=== PATIENT | male | born 1955 | race Caucasian/White ===

== ENCOUNTER → 2018-04-15 15:45 | Outpatient (CLI) | payer OTHER, SELFPAY | PROVIDERS: Family Provider Internal Medicine; PCP Internal Medicine; Visit Provider Internal Medicine | DX: R19.7 Diarrhea, unspecified (principal) | CPT/HCPCS: 87493 ==

== ENCOUNTER → 2018-05-10 10:55 | Outpatient (CLI) | payer OTHER, SELFPAY | PROVIDERS: Family Provider Internal Medicine; PCP Internal Medicine; Visit Provider Internal Medicine | DX: M70.71 Other bursitis of hip, right hip (principal); M70.72 Other bursitis of hip, left hip | CPT/HCPCS: 73521 ==

== ENCOUNTER → 2019-11-02 10:37 | Outpatient (CLI) | payer MEDICARE, OTHER, SELFPAY ==
[2019-11-02 09:33] VITALS: BMI 29.4
--- NOTE | 2019-11-02 10:51 | CT_ITS ---
STUDY: CT ABDOMEN AND PELVIS WITHOUT CONTRAST REASON FOR EXAM: Male, 63 years old. BILATERAL KIDNEY INJURY, FELL DOWN STAIRS THIS AM, RT FLANK PAIN, MICROSCOPIC HEMATURIA, HX CHOLECYSTECTOMY RADIATION DOSAGE (If Supplied By Facility): CTDIvol = ( 10.37 ) mGy, DLP = ( 481.77 ) mGycm TECHNIQUE: Transaxial images were obtained from the dome of the diaphragm to the symphysis pubis without oral contrast, and without intravenous contrast. Sagittal and coronal images were reconstructed. Individualized dose optimization techniques were used for this CT. COMPARISON: Comparison is made with prior examination dated June 30, 2010. FINDINGS: There is a mild degree of groundglass appearance in both lower lobes posteriorly. This may represent atelectasis and/or contusion with the patient''s history of trauma. The visualized portions of the heart are within normal limits. Normal liver. The patient is status post cholecystectomy. Normal spleen. Normal pancreas. Normal bilateral adrenal glands. Normal right kidney. There is a 1.2 cm cyst in the anterior aspect of the left kidney. Normal visualized stomach. Normal small intestine. There are scattered colonic diverticula consistent with diverticulosis. The appendix is visualized and appears normal. Normal abdominal aorta. Normal inferior vena cava. Normal retroperitoneum. Normal urinary bladder. There is enlargement of the prostate gland. It measures 5.7 cm x 5.7 cm. Metallic radiation seeds are seen within it. The enlargement of the prostate gland causes indentation at the bladder base. Normal abdominal wall. There are diffuse degenerative changes of the visualized lumbar spine. Stable mild degree of loss of height of the superior endplate of the L5 vertebrae. CT/Abdomen/Pelvis without Cont IMPRESSION: Mild degree of groundglass appearance at the lung bases. Prostatic enlargement. Radiation seeds are seen within the prostate. Electronically Signed: Arley Shabazz, at 11:14 EST , Service support ,
--- NOTE | 2019-11-02 10:55 | RAD_ITS ---
STUDY: X-RAY CHEST REASON FOR EXAM: Male, 63 years old. Patient complains of cough x 4-5 weeks, denies any other lung disease Hx other than a previous PE TECHNIQUE: PA and lateral views of the chest. COMPARISON: Comparison is made with prior examination dated December 13, 2015. FINDINGS: Stable mild increased linear markings at the lung bases suggestive of a mild basilar scarring. There is no demonstrated pleural abnormality. Normal size heart. Normal mediastinum and katlyn. Normal visualized pulmonary arteries. Normal visualized aortic arch and descending thoracic aorta. There are diffuse degenerative changes of the visualized thoracic spine. Normal visualized ribs, clavicles, and shoulders. There is no demonstrated abnormality of the visualized soft tissue structures of the upper abdomen. RAD/Chest PA and Lateral IMPRESSION: Stable examination. Mild degree of bibasilar scarring. Electronically Signed: Arley Shabazz, at 15:42 EST , Service support ,
== END ==
PROVIDERS: PCP Internal Medicine; Referring Provider Internal Medicine; Visit Provider Internal Medicine
DX: R05 Cough (principal); S37.009A Unspecified injury of unspecified kidney, initial encounter
CPT/HCPCS: 71046; 74176

== ENCOUNTER → 2020-03-21 17:13 | Outpatient (CLI) | payer MEDICARE, OTHER, SELFPAY ==
[2019-11-02 09:33] VITALS: BMI 29.4
== END ==
PROVIDERS: PCP Internal Medicine; Referring Provider Urology; Visit Provider Urology
DX: R31.9 Hematuria, unspecified (principal)
CPT/HCPCS: 87086

== ENCOUNTER 2020-04-24 06:39 | Day surgery (SDC) | payer MEDICARE, OTHER, SELFPAY ==
[2019-11-02 09:33] VITALS: BMI 29.4
--- NOTE | 2020-04-17 14:57 | EKG12_ITS ---
Test Reason : PRE OP Blood Pressure : / mmHG Vent. Rate : 058 BPM Atrial Rate : 058 BPM P-R Int : 186 ms QRS Dur : 108 ms QT Int : 398 ms P-R-T Axes : 058 069 061 degrees QTc Int : 390 ms Sinus bradycardia Otherwise normal ECG Confirmed by GAMALIEL KIM ([id number]), photographic editor BOONE QUINONEZ ([id number]) on 04/22/2020 12:06:54 PM Referred By: Kraig Guevara Confirmed By:GAMALIEL KIM
[2020-04-17 16:55] LABS: Hematocrit 42.1 % (40-54); Mean Corp Hgb Conc 33.3 g/dL (32-36); Mean Corpuscular Hgb 29.2 pg (27.0-32.0); Mean Corpuscular Volume 87.9 fL (80-94); Platelet Count 163 K/mm3 (150-450); RBC Distribution Width CV 12.7 % (11.6-14.6); RBC Distribution Width SD 40.9 fl (35.1-43.9); Red Blood Count 4.79 M/mm3 (4.6-6.2); White Blood Count 4.8 K/mm3 (4.4-11.0)
[2020-04-24] VITALS (13 sets, daily range): BP systolic 117–138; BP diastolic 57–77; PULSE 52–65; RESP 16–18; TEMP 36.2–36.8; O2SAT 55–100; BMI 29.0
--- NOTE | 2020-04-24 | PROS_PTH ---
PATIENT: GAMAL MONTANA [place] [facility] [place][id number] AGE/SX: 64/M ROOM: RE04/24/[address]: Dr. Kraig Guevara MD : [id number] BED: DIS: 04/25/2020 SPEC #: [id number] RECD: 04/24/20 13:38 STATUS: RAFFAELE BRENTON #: [id number] MERY: 04/24/20 00:[address]: Kraig Guevara DEPT: SURGICAL PATHOLOGY RECD BY: Nathaniel Looney ENTERED: 04/24/20 13:38 SP TYPE: TURP OTHR DR: Dr. Christiane Naqvi MD Tissues: Prostate, NOS Procedures: Surgery Specimen Level IV HEADER OPERATION: Cysto, TUR prostate, Olympus PRE-OP DIAGNOSIS: BPH with lower urinary tract symptoms TISSUE SUBMITTED: Prostate chips, explanted Urolift, bladder stones MICROSCOPIC DIAGNOSIS Prostate, transurethral resection: Benign nodular hyperplasia, glandular and stromal types. Mild chronic inflammation. AM:dagoberto 04/25/20 MICROSCOPIC DESCRIPTION Slides are reviewed. GROSS DESCRIPTION Received is one container labeled with the patient's name and designated prostate chips. The specimen consists of multiple irregular fragments of pink-medina, rubbery, soft tissue that in aggregate weigh 19.3 gm and measure in aggregate 6 x 6 x 1.6 cm. The entire specimen is submitted in ten cassettes. / AM:dagoberto 04/24/20 TC:3 CPT: 93867
[2020-04-24] MEDS: Lactated Ringers 1,000 ML 100 ML IV ×2 (07:29→11:30)
[2020-04-24] MEDS: Cefazolin 2 GM in 0.9% Normal Saline 100 ML IV (10:07)
--- NOTE | 2020-04-24 10:09 | HP.PCM_ITS ---
History of Present Illness Date of Admission: 04/24/20 Chief Complaint: Bladder stones after UroLift implant BPH with obstruction The patient is a 64 year old male who underwent a novel new procedure for obstruction with a UroLift implants. Initially had a good results reported nice white stream was very happy with the results but now has been having more irritative voiding symptoms on cystoscopy was found to have bladder stones on the lateral sides of the prostate and where the distal implants went in proximal to the bladder neck. The implants were put in 2 cm proximal to the bladder neck as recommended by the occupational medicine physician but despite this implants because stones in the bladder surgery today we can remove the UroLift implants in order to proceed with a TURP to relieve obstruction Past Medical History Past Medical History (Chronic Problems): Chronic Problems (Last Reviewed 11/17/18 @ 16:15 by Alyson Clemente) Deep vein thrombosis (DVT) of right lower extremity (Chronic 07/20/15) Obstructive sleep apnea (Chronic) Essential tremor (Chronic) Anemia (Chronic) Hyperlipidemia (Chronic) Pulmonary embolism and infarction (Chronic) HTN (hypertension) (Chronic) Medical History: Medical History (Last Reviewed 04/24/20 @ 10:[address] Kraig Guevara MD) Deep vein thrombosis (DVT) of right lower extremity (Chronic) Onset Date: 07/20/15 I82.401 Obstructive sleep apnea (Chronic) G47.33 Essential tremor (Chronic) G25.0 Anemia (Chronic) D64.9 Hyperlipidemia (Chronic) E78.5 Pulmonary embolism and infarction (Chronic) I26.99 HTN (hypertension) (Chronic) I10 Anxiety F41.9 BPH (benign prostatic hyperplasia) N40.0 Duodenal ulcer K26.9 IBS (irritable bowel syndrome) K58.9 Allergies No Known Allergies Allergy (Verified 04/24/20 07:16) Home Medications: Ambulatory Orders Medication Instructions Recorded RX: Fluticasone 0.05% [Flonase 1 spray NASAL DAILY PRN 07/20/15 Nasal [place]] RX: Lactobacillus Combination No.4 1 ea PO DAILY 07/20/15 [Probiotic] RX: Loratadine [Claritin] 10 mg PO DAILY PRN 07/20/15 Glutamine [l-Glutamine] 500 mg PO DAILY 04/13/16 omega-3 fatty acids 1,000 mg 1,000 mg PO QDAY 02/07/18 capsule duloxetine 20 mg capsule,delayed 20 mg PO QDAY cap 11/04/17 release krill oil 500 mg capsule 1,000 mg PO QDAY ea 11/04/17 propranolol 60 mg tablet 60 mg PO BID tab 11/04/17 aspirin 81 mg tablet,delayed 81 mg PO DAILY 05/26/18 release rivaroxaban 20 mg tablet 20 mg PO .COMPLEX PRN 05/26/18 Atorvastatin Calcium [Lipitor] 10 mg PO QHS 04/17/20 Cholecalciferol (Vitamin D3) 50 mcg PO DAILY 04/17/20 [Vitamin D3] Famotidine [Pepcid] 20 mg PO DAILY 04/17/20 Tamsulosin HCl [Flomax] 0.4 mg PO BID 04/17/20 Surgical History: Surgical History (Last Reviewed 11/17/18 @ 16:15 by Alyson Clemente) H/O arthroscopy of left knee Z98.890 History of vasectomy Z98.52 Hx of cholecystectomy Z98.890, Z90.49 Smoking Status: Never smoker Tobacco Use: Non-smoker Review of Systems Constitutional: Denies: Chills, Fever, Weight Change HEENT: Denies: Head Aches, Sinus Congestion, Sinus Drainage Cardiovascular: Denies: Chest Pain, Palpitations Respiratory: Denies: Cough, Shortness of breath at rest, Sputum production Gastrointestinal: Denies: Abdominal Pain, Nausea, Vomiting Genitourinary: Denies: Dysuria Musculoskeletal: Denies: Joint Pain, Joint Tenderness Skin: Denies: Rash, Wounds Neurological: Denies: Numbness, Tingling, Focal weakness Psychiatric: Denies: Anxiety, Depression, Homicidal Ideations, Suicidal Ideations Hematologic/ Lymphatic: Denies: Easy Bruising, Easy Bleeding VTE Information - Inpt Only VTE Present on Admission: No VTE Mechan Device Prophylaxis: SCD's - Physical Exam Vitals/I&O's: Vital Signs Temp Pulse Resp BP Pulse Ox 98 F 62 16 135/76 H 97 04/24/20 07:19 04/24/20 07:19 04/24/20 07:19 04/24/20 07:19 04/24/20 07:19 Oxygen Delivery Method Room Air Weight: 84 kg Body Mass Index (BMI) 29.0 General: Alert, Oriented x3, Cooperative HEENT: Atraumatic, PERRLA, EOMI, Normocephalic Neck: Supple, No JVD, Negative Carotid Bruits Lungs: Clear to auscultation, Normal air movement Cardiovascular: Regular rate, No murmurs Abdomen: Bowel Sounds Present, Soft, Non Tender Extremities: No edema, Capillary Refill Less than 3 Seconds Skin: No rashes, No breakdown Musculoskeletal: No Tenderness to Palpation of Joints or Extremities Neurological: Cranial nerves II-XII grossly intact Psych/Mental Status: Normal Affect, Appropriate Current Medications Lactated Ringer's () 1,000 mls @ 100 mls/hr IV .Q10H LIDIA Last Admin: 04/24/20 07:29 Dose: 100 mls/hr Documented by: Assessment/Plan Plan to proceed with surgical removal of your left implant and transurethral resection of the prostate.
--- NOTE | 2020-04-24 10:16 | DCINST_ITS ---
Discharge Diet: Light diet - advance as tolerated Discharge Activity: Return to Normal Activity, May not drive while taking narcotic pain medications., May Shower Call your doctor if you observe: Fever of 101 or Higher Instructions: Transurethral Resection of the Prostate (TURP) Allergies/Adverse Reactions: Allergies No Known Allergies Allergy (Verified 04/24/20 07:16) Medications to take at Discharge Fluticasone 0.05% [Flonase Nasal [place]] 1 spray NASAL DAILY PRN 07/20/15 Lactobacillus Combination No.4 [Probiotic] 1 ea PO DAILY 07/20/15 Loratadine [Claritin] 10 mg PO DAILY PRN 07/20/15 Glutamine [l-Glutamine] 500 mg PO DAILY 04/13/16 omega-3 fatty acids 1,000 mg capsule 1,000 mg PO QDAY 11/03/17 duloxetine 20 mg capsule,delayed release 20 mg PO QDAY cap 11/04/17 krill oil 500 mg capsule 1,000 mg PO QDAY ea 11/04/17 propranolol 60 mg tablet 60 mg PO BID tab 11/04/17 aspirin 81 mg tablet,delayed release 81 mg PO DAILY 05/26/18 rivaroxaban 20 mg tablet 20 mg PO .COMPLEX PRN 05/26/18 Atorvastatin Calcium [Lipitor] 10 mg PO QHS 04/17/20 Cholecalciferol (Vitamin D3) [Vitamin D3] 50 mcg PO DAILY 04/17/20 Famotidine [Pepcid] 20 mg PO DAILY 04/17/20 Tamsulosin HCl [Flomax] 0.4 mg PO BID 04/17/20 Ciprofloxacin [Cipro] 500 mg PO BID #14 tab 04/24/20 The following prescriptions were given: Ciprofloxacin [Cipro] 500 mg PO BID #14 tab Transmission Status: Pending to [id number] Primary Care Physician: Christiane Naqvi MD [Primary Care Provider] - Test Results: Test results from this visit will be discussed in further detail at your follow- up appointment, if applicable. Please Follow Up With: Kraig Guevara MD When: in 2 weeks, please call to make an appointment.
--- NOTE | 2020-04-24 11:34 | OP.PCM_ITS ---
Problem List (1) BPH with obstruction/lower urinary tract symptoms Status: Acute (2) Bladder stone Status: Acute Report of Operation Date of Procedure: 04/24/20 Pre-Operative Diagnosis: Foreign object in the bladder UroLift and bladder stones BPH with obstruction Post-Operative Diagnosis: The same Surgery/Procedure Performed:: Multiple procedures. Cystolitholapaxy removal small bladder stones. Removal of UroLift implants foreign object in the bladder. Transurethral resection of the prostate Description of Surgical Findings:: 64-year-old male who underwent a UroLift implant few years ago initially did well then came back to the office having a lot of irritative symptoms difficulty going to the bathroom a lot of urgency frequency cystoscopy was done in the office to demonstrated that the 2 implants had gone into the bladder and therefore not to the bladder because a bladder stone on each side of the bladder neck causing irritation and irritative bladder symptoms so today when to proceed with the removal of the bladder stone removal of the foreign object in the bladder and a transurethral resection of the prostate to alleviate obstruction. 64-year-old male was taken back to the operating room at the smooth induction of general anesthesia he was placed in dorsolithotomy position. The penis and testicles are prepped and draped in usual sterile fashion. I went into the bladder with a 30 degree lens and a 21 [place] bridge I then switched over to a 70 degree lens and I inspected the bladder neck and we could see 2 stones one on each side photographs were taken of the stones and then 1 of them photographs he can actually see the metal implant that was in the bladder causing irritation. I then removed the scope and put in a 24 [place] noncontinuous flow Olympus resectoscope I started by resecting on the right side of the prostate towards the bladder neck until I encountered the stone the stone was then removed and flushed out of the bladder I then remove the for foreign object implant the ureter left on that side and then went to the left side that the same thing, I resected the tissue until I encountered the stone and remove the Urolift implant during this 1 of the loops broke so I switched over to a new loop and then I proceeded with resection of the prostate, I resected the bladder neck down to the muscle fibers and then resected the way back to the verumontanum resected the left lobe of the prostate, resect the right lobe of the prostate, create nice wide open channel, resection time was about an hour to create a nice wide open channel and then obtain hemostasis, did a crede flow test had a nice wide open flow, checked the sphincter, the sphincter was intact and checked the left and right ureteral orifice and both the left and right ureters were intact and open and patent after resection of the tissue, remove the foreign object, and the bladder stones and I put a catheter in the bladder and continuous irrigation in place anesthetic was reversed taken back to PACU good condition. Type of Anesthesia:: General Drains: Lewis 3 way - Admit VTE Documentation VTE Present on Admission: No VTE Mechan Device Prophylaxis: SCD's
--- NOTE | 2020-04-24 11:50 | EKG12_ITS ---
Test Reason : RUBENS Blood Pressure : / mmHG Vent. Rate : 059 BPM Atrial Rate : 059 BPM P-R Int : 204 ms QRS Dur : 098 ms QT Int : 418 ms P-R-T Axes : 053 070 052 degrees QTc Int : 413 ms Sinus bradycardia Otherwise normal ECG When compared with ECG of 17-APR-2020 15:08, No significant change was found Confirmed by GAMALIEL KIM ([id number]), copy editor BONOE QUINONEZ ([id number]) on 04/25/2020 11:28:10 AM Referred By: Kraig Guevara Confirmed By:GAMALIEL KIM
[2020-04-24] MEDS: Ibuprofen 600 MG Tablet PO (14:40)
[2020-04-24] MEDS: Lactated Ringers 1,000 ML 125 ML IV ×2 (14:41→23:25)
[2020-04-24] MEDS: Ciprofloxacin 400 MG/200 ML BAG 200 MG IV (18:19)
[2020-04-24] MEDS: Propranolol 40 MG Tablet 60 MG PO (21:41)
[2020-04-24] MEDS: Atorvastatin Calcium 10 MG Tablet PO (21:41)
[2020-04-24] MEDS: Docusate Sodium 100 MG Capsule PO (21:42)
[2020-04-25 02:03] VITALS: BP 114/58; PULSE 60; RESP 18; TEMP 36.6; O2SAT 99
[2020-04-25] MEDS: Ciprofloxacin 400 MG/200 ML BAG 200 MG IV (06:20)
[2020-04-25] MEDS: Ibuprofen 600 MG Tablet PO (08:15)
[2020-04-25] MEDS: Propranolol 40 MG Tablet 60 MG PO (08:29)
[2020-04-25] MEDS: Docusate Sodium 100 MG Capsule PO (08:29)
[2020-04-25] MEDS: Pantoprazole Sodium 40 MG Tablet PO (08:29)
[2020-04-25 08:30] VITALS: BP 122/62; PULSE 61; RESP 16; TEMP 37.1; O2SAT 97
[2020-04-25] MEDS: DULoxetine Hcl 20 MG Capsule PO (08:30)
== END 2020-04-25 10:49 | disposition home or self-care (01) ==
LOC: SDC 06:39 → AC 06:40 → MS3 10:12
PROVIDERS: Anesthesiology; PCP Internal Medicine; Referring Provider Urology; Visit Provider Urology
PROC: (CPT 52317; principal; 2020-04-24 08:35)
PROC: (CPT 52317; 2020-04-24 08:35)
DX: N40.1 Benign prostatic hyperplasia with lower urinary tract symptoms (principal); N13.8 Other obstructive and reflux uropathy; R35.0 Frequency of micturition; N21.0 Calculus in bladder; Z11.59 Encounter for screening for other viral diseases; I10 Essential (primary) hypertension; G47.33 Obstructive sleep apnea (adult) (pediatric); E78.00 Pure hypercholesterolemia, unspecified; G25.0 Essential tremor; F41.9 Anxiety disorder, unspecified; K58.9 Irritable bowel syndrome, unspecified; Z86.2 Personal history of diseases of the blood and blood-forming organs and certain disorders involving the immune mechanism; Z87.19 Personal history of other diseases of the digestive system; Z86.711 Personal history of pulmonary embolism; Z86.718 Personal history of other venous thrombosis and embolism; Z79.01 Long term (current) use of anticoagulants; Z79.82 Long term (current) use of aspirin; Z79.899 Other long term (current) drug therapy
CPT/HCPCS: 00914; 52317; 52601; 36415; 85027; 87635; 88305; 93005; 99251; G2023; J7120; G0463; J0744; J2405; U0003

== ENCOUNTER → 2020-08-16 12:54 | Outpatient (CLI) | payer MEDICARE, OTHER, SELFPAY ==
[2020-04-24 07:19] VITALS: BMI 29.0
--- NOTE | 2020-08-16 13:03 | VDUE_ITS ---
Reason For Study: thrombophlebitis of left arm, focus on left hand Right Proximal Left Proximal Right subclavian vein is spontaneous, widely Left jugular vein is spontaneous, widely patent, phasic, with no intraluminal patent, phasic, with no intraluminal echogenicity noted. echogenicity noted. Left subclavian vein is spontaneous, widely patent, phasic, with no intraluminal echogenicity noted. Left Arm Left axillary vein is spontaneous, patent, phasic, competent, compressible and demonstrates augmentation. Left brachial vein is compressible. Left cephalic vein is compressible. Left basilic vein is compressible. Left Lower Arm Left radial vein is compressible. Left ulnar vein is compressible. Patient Safety Unable to visualize veins of left hand due to being smaller than sound beam. Interpretation Summary Deep veins of the left upper extremity are patent and compressible segmentally. There is no evidence of deep vein thrombosis. The superficial veins of the left upper extremity, the basilic and cephalic veins, are patent and compressible. There is no evidence of left upper extremity superficial thrombophlebitis involving the veins imaged. Ordering Physician: Christiane Naqvi Referring Physician: Christiane Naqvi Performed By: Karley Ocasio, FABIAN, RVT ?
== END ==
PROVIDERS: PCP Internal Medicine; Referring Provider Internal Medicine; Visit Provider Internal Medicine
DX: I80.8 Phlebitis and thrombophlebitis of other sites (principal)
CPT/HCPCS: 93971

== ENCOUNTER 2021-09-12 09:30 | Outpatient (RCR) | payer MEDICARE, OTHER, SELFPAY ==
--- NOTE | 2021-08-25 12:41 | HP.PTEVAL ---
Patient's Visit Information AGMAL MONTANA is a 65 year old M referred to Physical Therapy by Dr. Christiane Naqvi MD with a diagnosis of hip pain , spinal stenosis. Date of Evaluation: 08/25/21 Physical Therapist: Robert Ward, DPT, OCS, CSCS - Visit Plan Frequency: 2-3x /Week Duration: 4-6 Weeks Plan: 2-3x/week for 4 weeks for ... 1. rollout and stretch B ITB, also stretch quads, HS and prirformis. 2. strenghten his and NS core to HEP - Subjective I have difficulty walking for fitness as R>L hips get very stiff and achy laterally and pulls down side of legs. Rubbing as he walks helps. Can go about an eighth of a mile then he needs to stop and stretch hips into flexion a little bit. No pain sitting or lying down. Has LBP that he has to do exercises for back for last 5 yrs that he does due to degeneration in LB. 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 Also with bending stooping or working overhead. Lb pain for years and does not correlate with hips. Diagnosed with spinal stenosis 15 yrs ago. Sleep is OK. Basic aDLs are no problem. Has to sit at times and does better sitting at computer. Steps not a big problem. Does elliptical without much problem. - Pain lateral hips Pain Intensity (Out of 10): 0 Pain Intensity Range: 0, 5 - Objective Walks normal, trasnfers normal and I. Steps reciprocal and I. Tender to palpation greater trochanter and down ITB B minimally. LB AROM ext and flexion mod deficits wihtout increased pain, SB min deficits no pain. reflexes 2/3 patella and achilles. sensation LE WNL to gross light touch. pirifromis mod tight, ITB max tight B, HS mod tight at -35 90/90 test, hip flexors min tight. strength LE 4+/5 - Balance/Special Test Scores Lower Extremity Functional Score: 63 - Goals Goal 1:: Walk 1/2 mile without any pain hips Goal Time Frame: 4-6 Weeks Goal 2:: Pt feel 75% better in mobility with less pain 1/10 at worst. 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 Rehabilitation Potential: Good - Anticipated Interventions Patient/Client Instruction: Educate patient on: Condition, Plan of Care For the Purpose of:: To decrease pain, To improve muscle performance and motor function, To increase tolerance to activity/condition/position Therapeutic Exercise to Include: Strength training, Postural training, Flexibilty training, Gait and locomotor training, Passive ROM, Active ROM, Dynamic Lumbar Stabilization For the Purpose of:: To decrease pain, To increase ROM, To improve muscle performance and motor function, To increase tolerance to activity/condition/position, To improve ability of physical actions for home/community/work/leisure Manual Therapy Techniques to Include: Mobilization, Passive ROM, Soft tissue mobilization For the Purpose of:: To decrease pain, To improve muscle performance and motor function, To increase tolerance to activity/condition/position, To improve ability of physical actions for home/community/work/leisure Thank you for the opportunity to evaluate your patient. For Medicare and Medicare HMO plans, please review the plan of care and approve it. It will need to be FAXED BACK to us at [phone] for Medicare purposes. For Medicare only, by signing this I certify the plan of care. Please let me know if there are questions or concerns regarding this plan of care. Physician Signature: Date:
--- NOTE | 2021-09-12 10:23 | HP.PTDCSUM ---
It has been my pleasure to treat GAMAL MONTANA referred by Dr. Christiane Naqvi MD, with the diagnosis of hip pain, spinal stenosis for a total of 7 visit(s). Discharge Date: 09/12/21 Please see the following information for a summary of their discharge status. Subjective: Stretching alot. Walking still has to stop and stretch it out after a quarter mile. Wants to check with doctor and see if it might be his chloe drug. He is sensitive to meds. Lb stays stiff also. Worse with yard work, not a big problem though. Feels like he knows what to do at home now. lateral hips Pain Intensity (Out of 10): 0 % Improvement: 10 Objective/Function: Good ROM LB without pain, stiff in flexion. Hip ROM similar to day one wihtou pain but still feels stiff. Walks well. Goal 1:: Walk 1/2 mile without any pain hips Goal Progress: Not Progressing Goal 2:: Pt feel 75% better in mobility with less pain 1/10 at worst. Goal Progress: Not Progressing Goal 3:: I management of condition Goal Progress: has exercises to do Plan: Pt to cotninue via [facility] and talk with doctor regarding unchanging stiffness. d/C Discharge Comments: To [facility] If there are questions or concerns regarding this patient's physical therapy, please feel free to call me at [phone]. Thank you for the referral of this patient. Sincerely, Robert Ward, DPT, OCS, CSCS Balance/Gait/Functional tests - Balance/Special Test Scores Lower Extremity Functional Score: 69
== END 2021-09-12 19:00 | disposition home or self-care (01) ==
LOC: PT 09:30
PROVIDERS: PCP Internal Medicine; Referring Provider Internal Medicine; Visit Provider Internal Medicine
DX: M79.606 Pain in leg, unspecified (principal)
CPT/HCPCS: 97110; 97161; 97164

== ENCOUNTER → 2022-02-11 | Outpatient (CLI) | payer MEDICARE, OTHER, SELFPAY ==
--- NOTE | 2022-02-11 17:10 | RAD_ITS ---
STUDY: X-RAY CHEST REASON FOR EXAM: Male, 66 years old. cough TECHNIQUE: PA and lateral COMPARISON: 11/04/2019 FINDINGS: The lungs are clear and expanded. There is no demonstrated pleural abnormality. Normal size heart. Normal mediastinum and katlyn. Normal visualized pulmonary arteries. Normal visualized aortic arch and descending thoracic aorta. Normal visualized thoracic spine. Normal visualized ribs, clavicles, and shoulders. There is no demonstrated abnormality of the visualized soft tissue structures of the upper abdomen. RAD/Chest PA and Lateral IMPRESSION: Normal x-ray examination of the chest. Electronically Signed: Alejandro Alexis MD at 0:09 EDT ,
== END | disposition home or self-care (01) ==
LOC: RAD 16:59
PROVIDERS: PCP Internal Medicine; Referring Provider Internal Medicine; Visit Provider Internal Medicine
DX: R05.9 Cough, unspecified (principal)
CPT/HCPCS: 71046

== ENCOUNTER → 2023-08-30 | Outpatient (CLI) | payer MEDICARE, OTHER, SELFPAY ==
[2023-08-30 13:51] LABS: Thyroid Stim Hormone (TSH) 2.37 uIU/mL (0.358-3.74)
== END | disposition home or self-care (01) ==
PROVIDERS: PCP Internal Medicine; Referring Provider Psychiatry & Neurology Neurology; Visit Provider Psychiatry & Neurology Neurology
DX: G25.0 Essential tremor (principal)
CPT/HCPCS: 36415; 84443

== ENCOUNTER → 2025-07-31 | Outpatient (CLI) | payer MEDICARE, OTHER, SELFPAY ==
[2025-07-31 13:25] LABS: AST(SGOT) 22 U/L (<=37); Alanine Aminotransfer ALT/SGPT 16 U/L (<=46); Albumin, Serum 4.3 g/dL (3.4-4.8); Alkaline Phosphatase 84 U/L (40-129); Anion Gap 8 (5-15); BUN 16 mg/dL (4-19); BUN/Creat Ratio 14.6 RATIO (10-20); Calcium,Total 9.1 mg/dL (7.6-11.0); Carbon Dioxide 27.7 mmol/L (21.0-32.0); Chloride 107 mmol/L (98-108); Cholesterol 165 mg/dL (<=200); Globulin 2.4 g/dL (2.2-4.2); Glucose 100 mg/dL (70-99); Low Density Lipoprotein Calc. 94 mg/dL; Potassium 4.2 mmol/L (3.3-5.1); Triglycerides 107 mg/dL; Very Low Density Lipoprotein 21 mg/dL (5-40); Vitamin D,25 Hydroxy 36.8 ng/mL (30-100); cholesterol:hdl ratio screen 3.20
== END | disposition home or self-care (01) ==
LOC: MTLAB 10:15
PROVIDERS: PCP Internal Medicine; Referring Provider Internal Medicine; Visit Provider Internal Medicine
DX: E55.9 Vitamin D deficiency, unspecified (principal); I25.10 Atherosclerotic heart disease of native coronary artery without angina pectoris
CPT/HCPCS: 36415; 80053; 80061; 82306

== ENCOUNTER → 2025-08-14 | Outpatient (CLI) | payer MEDICARE, OTHER, SELFPAY | END | disposition home or self-care (01) | LOC: LABSPEC 15:00 | PROVIDERS: PCP Internal Medicine; Referring Provider Internal Medicine; Visit Provider Internal Medicine | DX: J31.2 Chronic pharyngitis (principal) | CPT/HCPCS: 87070 ==